=== PATIENT | male | born 1950 | race Hispanic/Latino ===

== ENCOUNTER → 2018-06-12 | Outpatient (CLI) | payer OTHER ==
[~2018-06-12] VITALS: Ht 180.3 cm; Wt 99.8 kg
[~2018-06-12] MED LIST: REGADENOSON 0.4 MG/5 ML PF SYG IVP SCH
== END | disposition home or self-care (01) ==
LOC: SHCH 09:21
PROVIDERS: ATTEND Internal Medicine Cardiovascular Disease
DX: I20.8 Other forms of angina pectoris (principal)
CPT/HCPCS: 78452; 93017; 96374; A9500 ×2; J2785

== ENCOUNTER → 2018-06-26 | Outpatient (CLI) | payer OTHER | END | disposition home or self-care (01) | LOC: SHCH 15:33 | PROVIDERS: ATTEND Internal Medicine Cardiovascular Disease | DX: R07.9 Chest pain, unspecified (principal) | CPT/HCPCS: 93306 ==

== ENCOUNTER → 2020-11-04 | Outpatient (CLI) | payer OTHER ==
[~2020-11-04] MED LIST changes: +ALBUTEROL SULFATE 0.083% 2.5 MG/3 ML INH IH ONE; -REGADENOSON 0.4 MG/5 ML PF SYG IVP SCH
== END | disposition home or self-care (01) ==
LOC: RESP 10:18
PROVIDERS: ATTEND Orthopaedic Surgery
DX: M47.815 Spondylosis without myelopathy or radiculopathy, thoracolumbar region (principal); J44.9 Chronic obstructive pulmonary disease, unspecified
CPT/HCPCS: 71046; 94060

== ENCOUNTER → 2024-07-11 | Outpatient (CLI) | payer OTHER | END | disposition home or self-care (01) | LOC: SHCH 12:37 | PROVIDERS: ATTEND Internal Medicine Cardiovascular Disease | DX: I73.9 Peripheral vascular disease, unspecified (principal) | CPT/HCPCS: 93925 ==

== ENCOUNTER → 2024-07-15 | Outpatient (CLI) | payer OTHER ==
[2024-07-15] MEDS: REGADENOSON 0.4 MG/5 ML PF SYG IVP ONE (14:55)
== END | disposition home or self-care (01) ==
LOC: SHCH 08:26
PROVIDERS: ATTEND Internal Medicine Cardiovascular Disease
DX: I25.10 Atherosclerotic heart disease of native coronary artery without angina pectoris (principal); R94.31 Abnormal electrocardiogram [ECG] [EKG]
CPT/HCPCS: 78452; 93017; J2785; A9500 ×2